=== PATIENT | male | born 1990 | race Asian ===

== ENCOUNTER → 2018-10-09 | Outpatient (CLI) | payer OTHER ==
--- NOTE | 2018-10-09 13:03 | KCIC ---
Chest radiograph 10/09/2018 12:00 AM INDICATION: Abnormal chest x-ray COMPARISON: None available TECHNIQUE: Frontal and lateral views of the chest are provided. FINDINGS: The cardiomediastinal silhouette is within normal limits. There are no pleural effusions. There is no pulmonary vascular congestion. There is no pneumothorax. The lungs are clear. Remodeling of a right lateral sixth rib may be sequela of remote trauma. IMPRESSION: No acute cardiopulmonary process. Electronically signed by: Haydee Castellanos MD (10/09/2018 1:00 PM) [id number]
== END | disposition home or self-care (01) ==
LOC: RAD 09:29
PROVIDERS: ATTEND Family Medicine
DX: R93.89 Abnormal findings on diagnostic imaging of other specified body structures (principal)
CPT/HCPCS: 71046

== ENCOUNTER 2019-12-21 09:30 | Emergency (ER) | payer OTHER ==
[~2019-12-21] VITALS: Ht 167.6 cm; Wt 77.2 kg
[2019-12-21 09:36] VITALS: BP 131/85
[2019-12-21] MEDS ORDERED: DIPH25TA24 PO (09:55)
[2019-12-21] MEDS ORDERED: PRED20TA PO (09:55)
--- NOTE | 2019-12-21 09:55 | PHYS DOC ---
Past Medical History Past Medical History: No Pertinent History Past Surgical History: No Surgical History General Adult EDM: Chief Complaint: SKIN PROBLEM HPI: HPI: 29-year-old male presents emergency department today with a rash on both arms after helping his friend clear tall weeds at his new house outside doing yard work. He has extreme itching with the rash. He took some medication [id number] at [facility] without complete resolution. This started over the past few days. Duration constant. Review of systems negative for chest pain shortness of breath vomiting fevers chills. All other review of systems negative. ED course: 29-year-old male presenting with poison maureen. We will give him a prednisone taper and oral Benadryl to follow-up with his doctor in 1 to 2 days. Heart Score: Risk Factors: Risk Factors: DM, Current or recent (<one month) smoker, HTN, HLP, family history of CAD, obesity. Risk Scores: Score 0 - 3: 2.5% MACE over next 6 weeks - Discharge Home Score 4 - 6: 20.3% MACE over next 6 weeks - Admit for Clinical Observation Score 7 - 10: 72.7% MACE over next 6 weeks - Early Invasive Strategies Physical Exam: PE: Constitutional: Well developed, well nourished, no acute distress, non-toxic appearance. [] HENT: Normocephalic, atraumatic, bilateral external ears normal, oropharynx moist, no oral exudates, nose normal. [] Eyes: PERRLA, EOMI, conjunctiva normal, no discharge. [] Neck: Normal range of motion, no tenderness, supple, no stridor. [] Cardiovascular:Heart rate regular rhythm, no murmur [] Lungs & Thorax: Bilateral breath sounds clear to auscultation [] Abdomen: Bowel sounds normal, soft, no tenderness, no masses, no pulsatile masses. [] Skin: Warm, dry, no erythema, no rash. [] Back: No tenderness, no CVA tenderness. [] Extremities: Patient has linear maculopapular rash suggestive of contact dermatitis. Blanches mostly on the upper extremities around the forearms and hands. Neurologic: Alert and oriented X 3, normal motor function, normal sensory function, no focal deficits noted. [] Psychologic: Affect normal, judgement normal, mood normal. [] EKG: EKG: [] Radiology/Procedures: Radiology/Procedures: [] Course & Med Decision Making: Course & Med Decision Making Pertinent Labs and Imaging studies reviewed. (See chart for details) [] Dragon Disclaimer: Dragon Disclaimer: This electronic medical record was generated, in whole or in part, using a voice recognition dictation system. Departure Departure Impression: Primary Impression: Contact dermatitis Disposition: 01 HOME, SELF-CARE Condition: STABLE Referrals: TUTU EMERY MD (PCP) Patient Instructions: Poison Maureen Scripts Diphenhydramine Hcl (DIPHENHYDRAMINE HCL) 25 Mg Tablet 25 MG PO TID PRN PRN for ITCHING, #12 TAB 0 Refills Prov: KETTY MCNEIL MD 12/21/19 Prednisone (PREDNISONE) 20 Mg Tablet 2 TAB PO DAILY, #18 TAB Take 2 tablets for 5 days, then take 1 tablet for 5 days, then take half tablet for 5 days. Prov: KETTY MCNEIL MD 12/21/19 Justicifation of Admission Dx: Justifications for Admission: Justification of Admission Dx: N/A KETTY MCNEIL MD Dec 21, 2019 09:55
== END 2019-12-21 10:25 | disposition home or self-care (01) ==
LOC: ER 09:30
DX: L25.9 Unspecified contact dermatitis, unspecified cause (principal)
CPT/HCPCS: 99283